=== PATIENT | female | born 2000 | race Two or more races ===

== ENCOUNTER 2019-09-22 12:30 | Day surgery (SDC) | payer OTHER ==
[~2019-09-22] VITALS: Ht 157.5 cm; Wt 67.6 kg
[~2019-09-22 12:30] MED LIST: PRENA1 TRUE CO1 EACH
== END 2019-09-22 16:00 | disposition home or self-care (01) ==
LOC: ER 12:30 → CIR.AMB 12:30 → SEC-K 12:30 → O/R 12:30 → EDSTATUS 14:00 → CIR.AMB 16:00 → SEC-K 16:40 → O/R 16:40 → SEC-K 19:00 → O/R 19:00
PROVIDERS: ATTEND General Practice
DX: O03.1 Delayed or excessive hemorrhage following incomplete spontaneous abortion (principal); O26.851 Spotting complicating pregnancy, first trimester; O36.80X1 Pregnancy with inconclusive fetal viability, fetus 1

== ENCOUNTER 2019-12-18 14:38 | Emergency (ER) | payer OTHER ==
[~2019-12-18] VITALS: Ht 157.5 cm; Wt 68.5 kg
== END 2019-12-18 19:20 | disposition home or self-care (01) ==
LOC: ER 14:38
DX: O23.41 Unspecified infection of urinary tract in pregnancy, first trimester (principal); Z34.01 Encounter for supervision of normal first pregnancy, first trimester

== ENCOUNTER 2019-12-29 03:42 | Emergency (ER) | payer OTHER ==
[~2019-12-29] VITALS: Ht 157.5 cm; Wt 68.5 kg
== END 2019-12-29 10:15 | disposition home or self-care (01) ==
LOC: ER 03:42
DX: O20.8 Other hemorrhage in early pregnancy (principal); Z3A.08 8 weeks gestation of pregnancy

== ENCOUNTER 2020-01-06 04:49 | Emergency (ER) | payer OTHER ==
[~2020-01-06] VITALS: Ht 157.5 cm; Wt 68.5 kg
== END 2020-01-06 12:28 | disposition home or self-care (01) ==
LOC: ER 04:49
DX: O20.0 Threatened abortion (principal)

== ENCOUNTER 2020-01-16 01:35 | Day surgery (SDC) | payer OTHER ==
[~2020-01-16] VITALS: Ht 157.5 cm; Wt 68.5 kg
== END 2020-01-16 23:35 | disposition home or self-care (01) ==
LOC: ER 01:35 → CIR.AMB 06:21
PROVIDERS: ATTEND Obstetrics & Gynecology
DX: O02.1 Missed abortion (principal); Z20.828 Contact with and (suspected) exposure to other viral communicable diseases